=== PATIENT | male | born 1930 | race Two or more races ===

== ENCOUNTER 2017-08-25 06:13 | Day surgery (SDC) | payer MEDICARE, OTHER ==
--- NOTE | 2017-08-24 11:06 | Pre-Procedure Note/Attestation ---
Pre-Procedure Note/Attestation Complete Prior to Procedure Planned Procedure: left Procedure Narrative: 1. CATARACT EXTRACTION WITH PHACO AND PC IOL IMPLANTATION, LEFT EYE. 2. LIMBAL RELAXING INCISION, LEFT EYE. 3.MALYUGIN RING INSERTION, LEFT EYE FOR FLOPPY IRIS SYNDROME. 4.COMPLEX CATARACT , LEFT EYE Indications for Procedure Pre-Operative Diagnosis: 1. CATARACT (AGE RELATED NUCLEAR) ,LEFT EYE. 2.ASTIGMATISM , LEFT EYE. 3. FLOPPY IRIS SYNDROME,LEFT EYE 4. COMPLEX CATARACT , LEFT EYE. Attestation I attest that I discussed the nature of the procedure; its benefits; risks and complications; and alternatives (and the risks and benefits of such alternatives ), prior to the procedure, with the patient (or the patient's legal personal financial representative). I attest that, if there was a reasonable possibility of needing a blood transfusion, the patient (or the patient's legal personal financial representative) was given the [facility] standardized written summary, pursuant to the [place]t [place] Blood Safety Act ([place] Health and Safety Code # 1645, as amended). I attest that I re-evaluated the patient just prior to the surgery and that there has been no change in the patient's H&P, except as documented below: LULI RAMSEY Aug 24, 2017 11:06
[~2017-08-25] VITALS: Ht 154.9 cm; Wt 74.8 kg
[2017-08-25] VITALS (9 sets, daily range): BP systolic 126–163; BP diastolic 53–89
[~2017-08-25 06:13] MED LIST: NKM; acetaZOLAMIDE 125mg tab ORAL ONE
[2017-08-25] MEDS ORDERED: BSS 500ml btl ONE (06:41)
[2017-08-25] MEDS ORDERED: Lidocaine 1% MPF 10mg/ml 5ml ONE ×2 (06:42→08:30)
[2017-08-25] MEDS ORDERED: Tetracaine 0.5% Opth 4ml Soln ONE (06:42)
[2017-08-25] MEDS ORDERED: Dexamethasone 4mg/ml vial ONE (06:42)
[2017-08-25] MEDS ORDERED: BSS 15ml BTL ONE (06:43)
[2017-08-25] MEDS ORDERED: Povidone-Iodine 5% opth solution ONE (06:43)
[2017-08-25] MEDS ORDERED: Sodium Hyaluronate 10 mg/ml 0.85ml ONE (06:43)
[2017-08-25] MEDS ORDERED: EPINEPHrine 1mg/1ml Amp ONE (06:43)
[2017-08-25] MEDS ORDERED: Carbachol 0.01% Op Soln 1.5ml vial ONE (06:43)
[2017-08-25] MEDS: Tropicamide 1% Opth 15ml Soln LEFT EYE SCH ×3 (07:06→07:31)
[2017-08-25] MEDS: Akten 3.5% 1ml Btl LEFT EYE SCH ×3 (07:06→07:31)
[2017-08-25] MEDS: Ketorolac Tromethamine Opth 5ml Soln LEFT EYE SCH ×3 (07:06→07:31)
[2017-08-25] MEDS: Vigamox Opth Soln 3ml LEFT EYE SCH ×3 (07:07→07:31)
[2017-08-25] MEDS: Phenylephrine 10% Opth Soln 5ml LEFT EYE SCH ×3 (07:07→07:31)
--- NOTE | 2017-08-25 08:14 | Anethesia Preoperative Eval ---
Anesthesia Pre-op PMH/ROS General Date of Evaluation: Aug 25, 2017 Anesthesiologist: Keith ASA Score: ASA 2 Mallampati Score Class I : Soft palate, uvula, fauces, pillars visible Class II: Soft palate, uvula, fauces visible Class III: Soft palate, base of uvula visible Class IV: Only hard plate visible Mallampati Classification: Class II Surgeon: Nerissa Diagnosis: Left cataract Surgical Procedure: Left cataract extraction with IOL Anesthesia History: none Family History: no anesthesia problems Allergies: Coded Allergies: PENICILLINS (Verified Allergy, Unknown, 08/24/17) CANNOT REMEMBER REACTION Medications: see eMAR Past Medical History Cardiovascular: Reports: HTN, arrhythmia - h/o sss, s/p pacemaker; last changed 2014, Denies: CAD, [place], valve dz, other Pulmonary: Denies: asthma, COPD, [place], other Gastrointestinal/Genitourinary: Denies: GERD, CRI, ESRD, other Neurologic/Psychiatric: Denies: dementia, CVA, depression/anxiety, TIA, other Endocrine: Denies: DM, hypothyroidism, steroids, other HEENT: Denies: cataract (L), cataract (R), glaucoma, [place] (L), [place] (R), other Hematology/Immune: Denies: anemia, DVT, bleeding disorder, other Musculoskeletal/Integumentary: Denies: OA, RA, DJD, DDD, edema, other PSxH Narrative: abraham waddell Anesthesia Pre-op Phys. Exam Physician Exam Last Vital Signs Date Time Temp Pulse Resp B/P (MAP) Pulse Ox O2 Delivery O2 Flow Rate FiO2 08/25/17 07:11 97.2 56 20 141/76 98 Room Air Constitutional: NAD Cardiovascular: RRR Respiratory: CTA Airway Exam Mallampati Score: Class II MO: full ROM: full Teeth: missing Dentures: upper, lower Anesthesia Pre-op A/P Labs see chart Studies Pre-op Studies: EKG - sr Risk Assessment & Plan Assessment: ASA II Plan: MAC Status Change Before Surgery: No Pre-Antibiotics Drug: N/A SOCO HURTADO M.D. Aug 25, 2017 08:14
[2017-08-25] MEDS ORDERED: LR 1000ml 1,000 ML IVLG SCH (08:25)
[2017-08-25] MEDS ORDERED: DiphenhydrAMINE 50mg/ml Inj IVP PRN (08:30)
[2017-08-25] MEDS ORDERED: fentaNYL 100 mcg/2 mL IV ONE (08:30)
[2017-08-25] MEDS ORDERED: NS Irrig 1000ml ONE (08:30)
[2017-08-25] MEDS ORDERED: Sterile Water Irrig 1000ml IRRIG ONE (08:30)
[2017-08-25] MEDS ORDERED: LR 1000ml ONE (08:30)
--- NOTE | 2017-08-25 08:35 | Immediate Post-Op Evaluation ---
Immediate Post-Op Evalulation Immediate Post-Op Evalulation Procedure: Left cataract extraction with IOL Date of Evaluation: Aug 25, 2017 Time of Evaluation: 09:18 IV Fluids: 200 Blood Products: 0 Estimated Blood Loss: 0 Urinary Output: 0 Blood Pressure Systolic: 163 Blood Pressure Diastolic: 77 Pulse Rate: 55 Respiratory Rate: 16 O2 Sat by Pulse Oximetry: 100 Temperature (Fahrenheit): 98.2 Pain Score (1-10): 0 Nausea: No Vomiting: No Complications 0 Patient Status: awake, reacts, patent, none Hydration Status: adequate Drug: N/A SOCO HURTADO M.D. Aug 25, 2017 08:35
--- NOTE | 2017-08-25 08:36 | 48 Hour Post Anesthesia Eval ---
Post Anesthesia Evaluation Procedure: Left cataract extraction with IOL Date of Evaluation: Aug 25, 2017 Airway: patent Nausea: No Vomiting: No Pain Intensity: 0 Hydration Status: adequate Cardiopulmonary Status: at baseline Mental Status/LOC: patient returned to baseline Post-Anesthesia Complications: 0 Follow-up care needed: ready to discharge SOCO HURTADO M.D. Aug 25, 2017 08:36
--- NOTE | 2017-08-25 09:16 | Discharge Summary ---
Discharge Summary Discharge Summary Discharge Summary DATE OF ADMISSION: 08/25/2017 DATE OF DISCHARGE: REASON FOR HOSPITALIZATION: 08/25/2017 SURGERY PERFORMED: 1- cataract extraction with phaco and PC IOL implantation 2 - Limbal relaxin incision ( LRI ) , left eye CONDITION IN THE HOSPITAL:The patient tolerated the surgery without complications. DISCHARGE CONDITION: The patient was stable at discharge. DISCHARGE MEDICATIONS: 1. Vigamox eye drops one drop q.i.d, OS 2. Prednisolone one drop q.i.d, OS 3. Prolensa qd in the left eye POSTOPERATIVE ORDERS: The patient has to rest at home. No bending, No lifting, No watching Television tonight. POSTOPERATIVE FOLLOW UP: The patient will be followed in my office tomorrow morning at 7 o'clock. LULI RAMSEY Aug 25, 2017 09:16
--- NOTE | 2017-08-25 09:19 | Brief Operative Note ---
Immediate Post Operative Note Operative Note Chief Complaint: Blurry vision, difficulty driving and reading, left eye Pre-op Diagnosis: 1. CATARACT (AGE RELATED NUCLEAR) ,LEFT EYE. 2.ASTIGMATISM , LEFT EYE. 3. FLOPPY IRIS SYNDROME,LEFT EYE 4. COMPLEX CATARACT , LEFT EYE. Procedure: 1- Cataract extraction with phaco and PC IOL implantation, left eye 2- Limbal relaxing incision, ( LRI ), left eye Surgeon: Luli Multani MD. Outreach Educator: None Additional Surgeons: None Anesthesiologist: Dr. Parker Anesthesia: MAC Specimen: none Complications: none Condition: stable Fluids: 400ml Estimated Blood Loss: none Drains: none Implant(s) used?: Yes - Monofocal PC IOL implanted in the left eye without complication LULI MULTANI Aug 25, 2017 09:19
--- NOTE | 2017-08-27 07:45 | Operative Note - Dictated ---
DATE OF OPERATION: 08/25/2017 FACILITY: [facility]. SURGEON: Rafi Multani M.D. BRAID CUTTER: None. ANESTHESIOLOGIST: Dr. Parker. ANESTHESIA: Monitored anesthesia care (MAC). PREOPERATIVE DIAGNOSES: 1. Cataract, left eye. 2. Floppy iris syndrome. 3. Complex cataract. 4. Astigmatism. POSTOPERATIVE DIAGNOSES: 1. Cataract, left eye. 2. Floppy iris syndrome. 3. Complex cataract. 4. Astigmatism. SURGERY PERFORMED: 1. Cataract extraction with phacoemulsification in the left eye. 2. Insertion of Malyugin ring. 3. Complex cataract surgery. 4. Limbal relaxing incision. INDICATION FOR SURGERY: The patient is an 86-year-old gentleman with history of arrhythmia, osteoarthritis, benign prostatic hypertrophy, and hypercholesterolemia. The patient is taking Diovan, simvastatin, and pain medications. The patient is also using cetirizine 10 mg and hydrocortisone as well. The patient is allergic to penicillin. The patient is not a smoker and not a drinker. The patient is complaining of blurred vision in the left eye. Reexamination of the left eye, the cornea is clear. Anterior chamber is clean and quiet, but is shallow. Pupillary reflex is normal. There is no RAPD. There is 4+ nuclear scleroses and 2+ cortical cataract. To improve vision in the left eye, the cataract has to be removed and posterior chamber intraocular lens has to be implanted. INFORMED CONSENT: The nature of the surgery, risks, benefits, alternatives, and potential complications were explained in detail to the patient in his language, Farsi. The potential complications including, but not limited to bleeding, infection, posterior capsular rupture, lens subluxation, flat anterior chamber, iris prolapse, uveitis, corneal edema, macular edema, endophthalmitis, retinal detachment, loss of vision, and even loss of the eye all were explained in detail to the patient in his language, Farsi. The patient voiced understanding and accepted all the complications. The alternatives including accommodating lenses, multifocal lens, toric lens, and conventional cataract surgery with limbal relaxing incision (LRI) for treatment of astigmatism were all explained in detail to the patient in his language, Farsi. The patient voiced understanding. The patient elected to have only conventional cataract surgery with limbal relaxing incision for treatment of astigmatism in the left eye. Then, he signed the consent form, which is in the chart. DESCRIPTION OF SURGERY AND FINDINGS: Following that, the patient was taken to the operating room in a stable condition. Lidocaine gel, Akten 3.5% were applied to the conjunctiva of the left eye. IV sedation was given by the anesthesiologist, Dr. Parker. After adequate anesthesia and sedation had been achieved, the left eye was prepped and draped in the sterile fashion for intraocular surgery. Following that, a speculum was placed in the left eye. Before the patient was taken to the operation room, the eye was marked at 180 and 90 meridian. In the operation room using a corneal marker and marking pen, the steep meridian of the cornea was marked. Following that, using a anival knife with 600 micron blade, two parallel incisions were placed on the steep meridian of the cornea to treat the astigmatism. Following that, with a Super Sharp knife, a clear corneal side port was created. A 1% lidocaine without preservative (MPF) was injected into the anterior chamber. Viscoelastic agent, Healon was injected into the anterior chamber. Following that, using a 2.8 mm keratome, clear corneal temporal keratotomy was created. Viscoelastic agent was injected into the anterior chamber again. Following that, Vision Blue was injected under the viscoelastic agent to stain the anterior capsule of the crystalline lens. Following that, a clear fresh viscoelastic agent, Healon, was injected into the anterior chamber again. Under the viscoelastic agent, an anterior capsulotomy was performed in the fashion of capsulorrhexis beautifully. Following that, all viscoelastic agent was removed from the anterior chamber. Following that, using balanced salt solution, hydrodissection and hydrodelineation was performed and the nucleus was freed. Following that, clear fresh viscoelastic agent, Healon, was injected into the anterior chamber to protect the endothelium of the cornea. Following that, using the phacoemulsification machine in the fashion of horizontal chop, the nucleus was removed in toto. Following that, with the irrigation aspiration unit, cortical material was removed from the capsular bag and the capsular bag was polished. Following that, the capsular bag was filled with viscoelastic agent, Healon. Following that, a +21 diopter ZCB00 foldable PCIOL was injected into the capsular bag. The ZCB00 foldable IOL is [id number]. Following that, using a Sinskey hook, the lens was manipulated and put in the proper position. Following that, the viscoelastic agent was removed from the anterior and posterior part of the lens. Following that, the anterior chamber was filled with balanced salt solution and the wound was hydrated with balanced salt solution. Following that, the wound was checked for leakage. There was no leakage. Vigamox eye drops were applied to the conjunctiva of the left eye. The patient tolerated the surgery without complications. At the end of the surgery, the eye was patched with a clear and sterile fenestrated shield. Following that, the patient was transferred to the recovery room. In the recovery room, 125 mg of Diamox was given by mouth stat. Postoperative orders and directions were given to the patient. The patient will be discharged home upon stabilization. The patient will be followed in my office tomorrow morning at 9 o'clock. Rafi Multani M.D. DR: Kimmie JOB#: [id number] CC:
== END 2017-08-25 10:35 | disposition home or self-care (01) ==
LOC: SUR 06:13
DX: H25.12 Age-related nuclear cataract, left eye (principal); H25.012 Cortical age-related cataract, left eye; H21.81 Floppy iris syndrome; H52.202 Unspecified astigmatism, left eye; I10 Essential (primary) hypertension; Z95.0 Presence of cardiac pacemaker; Z90.49 Acquired absence of other specified parts of digestive tract; Z85.9 Personal history of malignant neoplasm, unspecified; Z95.810 Presence of automatic (implantable) cardiac defibrillator; Z88.0 Allergy status to penicillin
CPT/HCPCS: 65772; 66982; J0171; J1100; J1200; J3010; J7120; V2632; 94003; 94150

== ENCOUNTER 2017-09-08 08:15 | Day surgery (SDC) | payer MEDICARE, OTHER ==
--- NOTE | 2017-09-04 15:03 | Pre-Procedure Note/Attestation ---
Pre-Procedure Note/Attestation Complete Prior to Procedure Planned Procedure: right Procedure Narrative: 1. CATARACT EXTRACTION WITH PHACO AND PC IOL IMPLANTATION, RIGHT EYE. 2. LIMBAL RELAXING INCISION, RIGHT EYE. 3.MALYUGIN RING INSERTION, RIGHT EYE FOR FLOPPY IRIS SYNDROME. 4.COMPLEX CATARACT , RIGHT EYE Indications for Procedure Pre-Operative Diagnosis: 1. CATARACT (AGE RELATED NUCLEAR) ,RIGHT EYE. 2.ASTIGMATISM , RIGHT EYE. 3. FLOPPY IRIS SYNDROME,RIGHT EYE 4. COMPLEX CATARACT , RIGHT EYE. Attestation I attest that I discussed the nature of the procedure; its benefits; risks and complications; and alternatives (and the risks and benefits of such alternatives ), prior to the procedure, with the patient (or the patient's legal group sales representative). I attest that, if there was a reasonable possibility of needing a blood transfusion, the patient (or the patient's legal group sales representative) was given the [facility] standardized written summary, pursuant to the [place]t [place] Blood Safety Act ([place] Health and Safety Code # 1645, as amended). I attest that I re-evaluated the patient just prior to the surgery and that there has been no change in the patient's H&P, except as documented below: LULI RAMSEY Sep 04, 2017 15:03
[~2017-09-08] VITALS: Ht 157.5 cm; Wt 73.9 kg
[2017-09-08] VITALS (9 sets, daily range): BP systolic 113–141; BP diastolic 64–95
--- NOTE | 2017-09-08 07:10 | Anethesia Preoperative Eval ---
Anesthesia Pre-op PMH/ROS General Date of Evaluation: Sep 08, 2017 Time of Evaluation: 07:09 Anesthesiologist: pavel ASA Score: ASA 4 Mallampati Score Class I : Soft palate, uvula, fauces, pillars visible Class II: Soft palate, uvula, fauces visible Class III: Soft palate, base of uvula visible Class IV: Only hard plate visible Mallampati Classification: Class II Surgeon: compa Diagnosis: cataract right eye Surgical Procedure: cataract extraction w/ iol right Anesthesia History: none Social History: smoking - nonsmoker Family History: no anesthesia problems Allergies: Coded Allergies: PENICILLINS (Verified Allergy, Unknown, 08/24/17) CANNOT REMEMBER REACTION Medications: see eMAR Past Medical History Cardiovascular: Reports: other - pacemaker Gastrointestinal/Genitourinary: Reports: other - gallbladder disease Anesthesia Pre-op Phys. Exam Physician Exam Constitutional: NAD Neurologic: CN 2-12 intact Cardiovascular: RRR Respiratory: CTA Gastrointestinal: S/NT/ND Airway Exam Mallampati Score: Class II MO: limited Neck: short TMD: 2fb ROM: limited Teeth: missing Dentures: upper, lower Anesthesia Pre-op A/P Risk Assessment & Plan Assessment: asa4 Plan: mac Status Change Before Surgery: No Pre-Antibiotics Drug: FABIENNE Bartlett Sep 08, 2017 07:10
[2017-09-08] MEDS: Tropicamide 1% Opth 15ml Soln RIGHT EYE SCH ×3 (08:52→09:21)
[2017-09-08] MEDS: Phenylephrine 10% Opth Soln 5ml RIGHT EYE SCH ×3 (08:53→09:21)
[2017-09-08] MEDS: Ketorolac Tromethamine Opth 5ml Soln RIGHT EYE SCH ×3 (08:54→09:22)
[2017-09-08] MEDS: Vigamox Opth Soln 3ml RIGHT EYE SCH ×3 (08:55→09:22)
[2017-09-08] MEDS: Akten 3.5% 1ml Btl RIGHT EYE SCH ×3 (08:55→09:22)
[2017-09-08] MEDS ORDERED: NKM (09:13)
[2017-09-08] MEDS ORDERED: Midazolam 2mg/2ml Inj ONE (11:00)
[2017-09-08] MEDS ORDERED: fentaNYL 100 mcg/2 mL IV ONE (11:00)
[2017-09-08] MEDS ORDERED: Sterile Water Irrig 1000ml IRRIG ONE (11:00)
[2017-09-08] MEDS ORDERED: LR 1000ml ONE (11:00)
[2017-09-08] MEDS ORDERED: Sodium Chloride 10ml vial INJ ONE (11:00)
[2017-09-08] MEDS ORDERED: NS Irrig 1000ml ONE (11:00)
[2017-09-08] MEDS ORDERED: BSS 500ml btl ONE ×3 (11:03→12:34)
[2017-09-08] MEDS ORDERED: LR 1000ml 1,000 ML IVLG SCH (11:57)
[2017-09-08] MEDS ORDERED: Midazolam 2mg/2ml Inj IVP PRN (12:00)
[2017-09-08] MEDS ORDERED: fentaNYL 100 mcg/2 mL IV PRN (12:00)
[2017-09-08] MEDS ORDERED: DiphenhydrAMINE 50mg/ml Inj IVP PRN (12:00)
[2017-09-08] MEDS ORDERED: Atropine Inj 1mg/10ml Syr IV PRN (12:00)
--- NOTE | 2017-09-08 12:18 | Discharge Summary ---
Discharge Summary Discharge Summary Discharge Summary DATE OF ADMISSION: 09/08/2017 DATE OF DISCHARGE: 09/08/2017 REASON FOR HOSPITALIZATION: cataract right eye SURGERY PERFORMED: 1- cataract extraction right eye 2- LRI right eye CONDITION IN THE HOSPITAL:The patient tolerated the surgery without complications. DISCHARGE CONDITION: The patient was stable at discharge. DISCHARGE MEDICATIONS: 1. Vigamox eye drops one drop q.i.d, OD 2. Prednisolone one drop q.i.d, OD 3- Prolensa one drop qd, right eye POSTOPERATIVE ORDERS: The patient has to rest at home. No bending, No lifting, No watching Television tonight. POSTOPERATIVE FOLLOW UP: The patient will be followed in my office tomorrow morning at 7 o'clock. LULI RAMSEY Sep 08, 2017 12:18
--- NOTE | 2017-09-08 12:21 | Brief Operative Note ---
Immediate Post Operative Note Operative Note Chief Complaint: Blurry right eye, difficulty driving and reading Pre-op Diagnosis: 1. CATARACT (AGE RELATED NUCLEAR) ,RIGHT EYE. 2.ASTIGMATISM , RIGHT EYE. 3. FLOPPY IRIS SYNDROME,RIGHT EYE 4. COMPLEX CATARACT , RIGHT EYE. Procedure: 1- Cataract extraction with phaco and PC IOL implantation right eye 2- LRI, right eye Post-op Diagnosis: same as pre-op Surgeon: Luli Multani MD Senior Product Designer: None Additional Surgeons: NOne Anesthesiologist: Anesthesia: MAC Specimen: none Complications: none Condition: stable Fluids: 500ml Estimated Blood Loss: none Drains: none Implant(s) used?: Yes - Monofocal PC IOL implanted in the right eye without complication LULI MULTANI Sep 08, 2017 12:21
[2017-09-08] MEDS ORDERED: EPINEPHrine 1mg/1ml Amp ONE (12:34)
[2017-09-08] MEDS ORDERED: Dexamethasone 4mg/ml vial ONE (12:34)
[2017-09-08] MEDS ORDERED: Povidone-Iodine 5% opth solution ONE (12:34)
[2017-09-08] MEDS ORDERED: Lidocaine 1% MPF 10mg/ml 5ml ONE (12:34)
[2017-09-08] MEDS ORDERED: Sodium Hyaluronate 10 mg/ml 0.85ml ONE (12:35)
[2017-09-08] MEDS ORDERED: BSS 15ml BTL ONE (12:35)
[2017-09-08] MEDS ORDERED: Tetracaine 0.5% Opth 4ml Soln ONE (12:37)
--- NOTE | 2017-09-08 12:42 | Immediate Post-Op Evaluation ---
Immediate Post-Op Evalulation Immediate Post-Op Evalulation Procedure: cataract extraction w/ iol right Date of Evaluation: Sep 08, 2017 Time of Evaluation: 12:34 IV Fluids: 900ml lr Blood Products: none Estimated Blood Loss: negligible Blood Pressure Systolic: 113 Blood Pressure Diastolic: 84 Pulse Rate: 55 Respiratory Rate: 18 O2 Sat by Pulse Oximetry: 99 Temperature (Fahrenheit): 98.6 Pain Score (1-10): 0 Nausea: No Vomiting: No Complications none Patient Status: awake, reacts, patent Hydration Status: adequate Drug: FABIENNE Bartlett Sep 08, 2017 12:42
--- NOTE | 2017-09-08 12:43 | 48 Hour Post Anesthesia Eval ---
Post Anesthesia Evaluation Procedure: cataract extraction w/ iol right Date of Evaluation: Sep 08, 2017 Time of Evaluation: 12:36 Blood Pressure Systolic: 122 0: 72 Pulse Rate: 55 Respiratory Rate: 18 Temperature (Fahrenheit): 98.6 O2 Sat by Pulse Oximetry: 100 Airway: patent Nausea: No Vomiting: No Pain Intensity: 0 Hydration Status: adequate Cardiopulmonary Status: stable Mental Status/LOC: patient returned to baseline Post-Anesthesia Complications: none Follow-up care needed: N/A FABIENNE CUELLAR Sep 08, 2017 12:43
--- NOTE | 2017-09-09 13:30 | Operative Note - Dictated ---
DATE OF OPERATION: 09/08/2017 FACILITY: [facility]. SURGEON: Rafi Multani M.D. CENTRIFUGAL DRIER OPERATOR: None. ANESTHESIOLOGIST: Michelle Dodd M.D. ANESTHESIA: Monitored anesthesia care (MAC). PREOPERATIVE DIAGNOSES: 1. Cataract, right eye. 2. Floppy iris syndrome. 3. Complex cataract. 4. Astigmatism. POSTOPERATIVE DIAGNOSES: 1. Cataract, right eye. 2. Floppy iris syndrome. 3. Complex cataract. 4. Astigmatism. SURGERY PERFORMED: 1. Cataract extraction with phacoemulsification and implantation of the PCIOL implantation in the right eye. 2. Insertion of Malyugin ring. 3. Complex cataract surgery. 4. Limbal relaxing incision. INDICATION FOR SURGERY: The patient is an 86-year-old gentleman with history of arrhythmia, osteoarthritis, benign prostatic hypertrophy, and hypercholesterolemia. The patient is taking Diovan, simvastatin, and pain medication. The patient is also using 10 mg and hydrocortisone . The patient is allergic to penicillin. The patient is not a smoker and nondrinker. The patient has a pacemaker. The patient is complaining of blurred vision in the right eye. He had cataract surgery in the left eye with good results in the last week and he is happy with the results. On examination of the right eye, the cornea is clear. Anterior chamber is clean and quiet, but is very shallow anterior chamber. Pupillary reflex is normal. There is no RAPD. There is 4+ nuclear sclerosis and 2+ cortical cataract. To improve his vision in the right eye, the cataract has to be removed and posterior chamber intraocular lens has to be implanted. INFORMED CONSENT: The nature of the surgery, risks, benefits, alternatives, and potential complications were explained in detail to the patient in his language, Farsi. The potential complications including, but not limited to bleeding, infection, posterior capsular rupture, lens subluxation, flat anterior chamber, iris prolapse, uveitis, corneal edema, macular edema, endophthalmitis, retinal detachment, loss of vision, and even loss of the eye were all explained in detail to the patient in his language, Farsi. The patient voiced understanding and accepted all the complications. The alternatives including accommodating lens, multifocal lens, toric lens, and conventional cataract surgery with limbal relaxing incision (LRI) for treatment of astigmatism all were explained in detail to the patient in his language, Farsi. The patient voiced understanding. The patient elected to have conventional cataract surgery with limbal relaxing incision for treatment of astigmatism in the right eye. Then, he signed the consent form, which is in the chart. DESCRIPTION OF SURGERY AND FINDINGS: Following that, the patient was taken to the operation room in a stable condition. Lidocaine gel, Akten 3.5% were applied to the conjunctiva of the right eye. IV sedation was given by the anesthesiologist, Dr. Jeet Valdivia. After adequate anesthesia and sedation had been achieved, the right eye was prepped and draped in the sterile fashion for intraocular surgery. Following that, the speculum was placed in the right eye. Before the patient was taken to the operating room, the eye was marked at 180 and 90 meridian. In the operation room, using a corneal marker and marking pen, the steep meridian of the cornea was marked. Following that, using a anival knife with 600 micron blade, two parallel incisions were placed on the steep meridian of the cornea to treat astigmatism. Following that, using Super Sharp knife, a clear corneal side port was created. A 1% lidocaine without preservative (MPF) was injected into the anterior chamber. Viscoelastic agent Healon was injected into the anterior chamber. Following that, using a 2.8 mm keratome, a clear corneal temporal keratotomy was created. Viscoelastic agent was injected into the anterior chamber again. Following that, a Malyugin ring was inserted into the anterior chamber to creat a anival-shaped space for safe phacoemulsification. Following that, a VisionBlue was injection under the viscoelastic agent. Following that, clear fresh viscoelastic agent was injected into the anterior chamber again. Under the viscoelastic agent, anterior capsulotomy was performed in the fashion of capsulorrhexis beautifully. Following that, viscoelastic agent was removed from the anterior chamber. Following that, using balanced salt solution, hydrodissection and hydrodelineation was performed and the nucleus was freed. Following that, a clear fresh viscoelastic agent, Healon was injected into the anterior chamber to protect the endothelium of the cornea. Following that, using the phacoemulsification machine in the fashion of horizontal chop, the nucleus was removed in toto. Following that, with the irrigation and aspiration unit, the cortical material was removed from the capsular bag and the capsular bag was polished. Following that, the capsular bag was filled with viscoelastic agent, Healon. Following that, a +21.5 diopter ZCB00 foldable PCIOL with serial number [id number] was injected into the capsular bag. Using a Sinskey hook, the lens was manipulated within the proper position. Following that, the viscoelastic agent was removed from the anterior posterior part of the lens. Following that, the anterior chamber was filled with balanced salt solution and the wound was hydrated with balanced salt solution. Following that, the wound was checked for leakage and there was no leakage. Vigamox eye drops were applied to the conjunctiva of the right eye. The patient tolerated the surgery without complications. At the end of the surgery, the eye was patched with a clear sterile fenestrated shield. Following that, the patient was transferred to the recovery room. In the recovery room, 125 mg Diamox was given by mouth stat. Postoperative orders and directions were given to the patient. The patient will be discharged home upon stabilization. The patient will be followed in the office tomorrow morning at 9 o'clock. Rafi Multani M.D. DR: JACQUES JOB#: [id number] CC:
== END 2017-09-08 13:30 | disposition home or self-care (01) ==
LOC: SUR 08:15
DX: H25.11 Age-related nuclear cataract, right eye (principal); H25.011 Cortical age-related cataract, right eye; H21.81 Floppy iris syndrome; H52.201 Unspecified astigmatism, right eye; M19.90 Unspecified osteoarthritis, unspecified site; E78.00 Pure hypercholesterolemia, unspecified; Z88.0 Allergy status to penicillin; Z95.0 Presence of cardiac pacemaker
CPT/HCPCS: 65772; 66982; J0171; J1100; J2250; J3010; J7120; V2632; 94003; 94150